=== PATIENT | male | born 1940 | race Caucasian/White ===

== ENCOUNTER 2025-06-19 04:23 | Emergency (ER) | payer MEDICARE ==
[2025-06-19] MEDS ORDERED: Azithromycin 250 MG TAB ONE (06:46)
== END 2025-06-19 07:05 | disposition home or self-care (01) ==
LOC: ERS 04:23
DX: J18.9 Pneumonia, unspecified organism (principal); I10 Essential (primary) hypertension
CPT/HCPCS: 71045; 87428